=== PATIENT | male | born 1960 | race Caucasian/White ===

== ENCOUNTER 2025-02-01 18:08 | Emergency (ER) | payer MEDICARE, OTHER ==
[2025-02-01 19:17] LABS: Actual Bicarbonate (HCO3v) 20.2 mEq/L (22-28); Analyzer IN Cardio CS ER; Base Excess -4.5 mEq/L (-2 - +2); Calcium, Ionized (venous) 1.13 mmol/L (1.16-1.32); Chloride (VBG) 97 mmol/L (98-106); Hematocrit-VBG 42 % (42.0-52.0); Hemoglobin (Hb) 14.2 g/dL (12.6-17.4); Potassium (VBG) 4.09 mmol/L (3.70-5.30); Puncture Site Other Site; RapidComm Collect By LAB; Sodium 134 mmol/L (133-146)
[2025-02-01 19:40] LABS: Glucose, Urine (Dipstick) >=1000 mg/dL (Negative); Leukocyte Negative (Negative); Protein, Urine (Dipstick) Negative (Neg-Trace); Specific Gravity, Urine 1.010 (1.005-1.030)
[2025-02-01 19:41] LABS: ALT (SGPT) 20 U/L (Less than 45); AST (SGOT) 18 U/L (11-34); Albumin 4.2 g/dL (3.1-4.5); Alkaline Phosphatase 81 U/L (40-110); Anion Gap 19 mmol/L (10-20); BUN (Urea Nitrogen) 47 mg/dL (8.4-25.7); Bilirubin, Total 0.4 mg/dL (0.3-1.2); Calc. Creatinine Clearance 0 mL/min (70-130); Calcium 9.5 mg/dL (7.8-10.44); Carbon Dioxide 19 mmol/L (23-31); Chloride 98 mmol/L (98-107); Globulin 3.5 g/dL (2.4-3.5); Magnesium 1.9 mg/dL (1.6-2.6); Potassium 4.1 mmol/L (3.5-5.1); Sodium 132 mmol/L (136-145)
[2025-02-01 19:45] LABS: Glucose 530 mg/dL (80-115)
[2025-02-01 19:47] LABS: Hematocrit 38.9 % (38.8-50.0); Hemoglobin 12.9 g/dL (13.5-17.5); Mean Corpuscular Hemoglobin 27.4 pg (27.0-33.0); Mean Corpuscular Volume 82.6 fL (81.2-95.1); Platelet Count 328 10x3/uL (150-450); Red Blood Cell (RBC) Count 4.71 10x6/uL (4.32-5.72); White Blood Cell (WBC) Count 25.10 10x3/uL (3.5-10.5)
[2025-02-01 19:50] LABS: Bacteria/HPF Rare-Few HPF (None Seen); CAUTI Indications for Culture Dysuria,urgency,freq; RBC/HPF 0-3 HPF (0-3); Urine Culture Reflex No No; WBC/HPF None Seen HPF (0-3)
[2025-02-01 19:52] LABS: MDiff Complete? YES; Platelet Adequacy Comment Appears Adequate; RBC Morphology Within Normal Limits; Toxic Granulation SLIGHT
== END 2025-02-01 22:34 | disposition home or self-care (01) ==
LOC: CSHERS 18:08
DX: E11.65 Type 2 diabetes mellitus with hyperglycemia (principal); I10 Essential (primary) hypertension; Z79.899 Other long term (current) drug therapy; N18.4 Chronic kidney disease, stage 4 (severe); D63.1 Anemia in chronic kidney disease; D50.9 Iron deficiency anemia, unspecified
CPT/HCPCS: 80048; 80053; 81001; 82010; 82570; 82805; 82962; 83735; 83970; 84156; 85014; 85018; 85025; 96360; 96372; 99284; J1815; 36415; 36416